=== PATIENT | female | born 1970 | race Caucasian/White ===

== ENCOUNTER 2017-11-06 06:11 | Day surgery (SDC) | payer SELFPAY ==
[2017-10-30 15:01] VITALS: BMI 25.7
[2017-11-06] MEDS ORDERED: ONDANSETRON 4 MG/2 ML VIAL IVPUSH PRN (06:50)
[2017-11-06] MEDS ORDERED: ePHEDrine SULFATE 50 MG/1 ML AMPULE ONE (06:58)
[2017-11-06] MEDS ORDERED: ROCURONIUM BROMIDE 50 MG/5 ML VIAL ONE (06:59)
[2017-11-06] MEDS ORDERED: PROPOFOL 20 ML ONE ×4 (06:59→07:58)
[2017-11-06] MEDS ORDERED: SUCCINYLCHOLINE CHLORIDE 200 MG/10 ML VIAL ONE (06:59)
[2017-11-06] MEDS ORDERED: MIDAZOLAM HCL 2 MG/2 ML SINGLE DOSE VIAL ONE ×2 (06:59→07:49)
[2017-11-06] MEDS ORDERED: LACTATED RINGERS SOLUTION 1,000 ML IV SCH (07:00)
[2017-11-06] MEDS ORDERED: BACITRACIN 3.5 GM OPTHALMIC OINT TUBE ONE (07:11)
[2017-11-06] MEDS ORDERED: BSS (NA/CA/MG/K) BALANCED SALT SOLUTION OPHTH SOLN 15 ML BOTTLE ONE (07:12)
[2017-11-06] MEDS ORDERED: LIDOCAINE 1%/EPI 1:100000 (20 ML MULTI DOSE VIAL) ONE (07:12)
[2017-11-06] MEDS ORDERED: POVIDONE-IODINE 5% OPHTHALMIC PREP 30 ML SOLUTION ONE (07:12)
--- NOTE | 2017-11-06 09:07 | OP ---
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
[2017-11-06 10:14] VITALS: TEMP 98
[2017-11-06 11:23] VITALS: BP 121/82; PULSE 84
== END 2017-11-06 11:40 | disposition home or self-care (01) ==
LOC: FASU 06:11
PROVIDERS: ATTEND Plastic Surgery
PROC: 080N0ZZ Alteration of Right Upper Eyelid, Open Approach (ICD-10-PCS; 2017-11-06)
PROC: 080P0ZZ Alteration of Left Upper Eyelid, Open Approach (ICD-10-PCS; principal; 2017-11-06 08:10)
DX: H02.32 Blepharochalasis right lower eyelid (principal); H02.34 Blepharochalasis left upper eyelid
CPT/HCPCS: 84703; 94760

== ENCOUNTER 2019-01-08 13:17 | Emergency (ER) | payer OTHER ==
[2019-01-08 13:26] VITALS: BP 157/90; PULSE 96; TEMP 98.5; BMI 25.7
--- NOTE | 2019-01-08 13:51 | PDOC ---
History of Present Illness - General Chief Complaint: Redness To Affected Area Stated Complaint: REDNESS DAVID BREASTS Time Seen by Provider: 01/08/19 13:20 History Source: Patient Exam Limitations: No Limitations - History of Present Illness Initial Comments: 01/08/19 13:42 HPI 48 YOF presenting with bilateral breast pain, redness, swelling, malodor and drainage x 5 weeks since her surgery with Dr Granados on [place], where she had bilateral breast reduction, liposuction and implants. since then, she has been maintaining cleaning and wound care, without improvement. since then, she has had constant pain in bilateral breasts, with purulence and open sores and odor. She had seen her surgeon x 2 over the past 2 weeks, and had attempts at drainage without blood/pus expelled. she continues to have pain worse in the left breast with drainage and axillary pain, with difficulty lifting her arm. Denies fever, chills, chest pain, SOB, palpitation, dizziness, weakness, abdominal pain, N, V, D, abdominal pain, bladder and bowel problems, leg swelling, No sick contacts or travel. No new changes in medications. no recent antibiotics Allergies: None Past Medical History: as documented in EMR/HPI Social history: Lives with family. No tobacco, ETOH or drug use. Surgical history: breast reduction and implants, blepharitis surgery Meds: as documented in EMR PMD: none Breast Surgeon: Dr Jaquan Rubalcava 01/08/19 14:07 01/08/19 14:07 01/08/19 14:38 01/08/19 17:23 Past History - Past Medical History Allergies/Adverse Reactions: Allergies Allergy/AdvReac Type Severity Reaction Status Date / Time No Known Allergies Allergy Verified 01/08/19 13:18 Home Medications: Ambulatory Orders Acidoph/L.bulg/Bif.b/S.thermop [Bacid Caplet] 1 each PO DAILY #14 tablet Cephalexin Monohydrate [Keflex -] 500 mg PO Q6H 14 Days #56 capsule 01/08/19 Sulfamethoxazole/Trimethoprim [Bactrim Ds Tablet] 1 each PO BID #28 tablet 01/08 Anemia: No Asthma: No Cancer: No Cardiac Disorders: No CVA: No COPD: No CHF: No Dementia: No Diabetes: No GI Disorders: No Disorders: No HTN: Yes Hypercholesterolemia: No Liver Disease: No Seizures: No Thyroid Disease: No - Surgical History Appendectomy: Yes - Suicide/Smoking/Psychosocial Hx Smoking History: Former smoker Have you smoked in the past 12 months: No If you are a former smoker, when did you quit?: 20 y ago Information on smoking cessation initiated: No Hx Alcohol Use: Yes (3 PER DAY) Drug/Substance Use Hx: No Substance Use Type: None Hx Substance Use Treatment: No Review of Systems - Review of Systems Able to Perform ROS?: Yes Comments:: 01/08/19 14:08 Review of systems Constitutional: no fevers or chills. HEENT: no headache or dizziness. No congestion. No visual/hearing disturbances. CVS: no cp or syncope. Resp: no sob. No cough. Gastrointestinal: no abdominal pain, nausea or vomiting. Genitourinary: no urinary sx, hematuria. MUSCULOSKELETAL: No joint pain and swelling. No neck or back pain. SKIN: +breast redness, swelling, sores, discharge, purulence and pain. Hematologic: no easy bruising/bleeding. NEUROLOGIC: No headache, dizziness, LOC or altered mental status. No weakness, numbness or tingling. Psych: no anxiety or depression Allergic/Immunologic: no allergies All other systems reviewed and negative, or as documented in HPI. *Physical Exam - Vital Signs Last Vital Signs Temp Pulse Resp BP Pulse Ox 98.5 F 96 H 20 157/90 100 01/08/19 13:18 01/08/19 13:18 01/08/19 13:18 01/08/19 13:18 01/08/19 13:18 - Physical Exam Comments: 01/08/19 14:08 Physical exam: General: Well appearing, awake and alert, NAD. HEENT: NCAT, PERRL, EOMI, clear conjunctiva, anicteric, moist mucus membranes, clear oropharynx, no oral lesions.. Neck: neck supple, FROM Breast: bilateral breast erythema, firmness and tenderness with post surgical appearance, 4 to 8 o'clock regions. bilateral under breast and anteriorly around areola with open ulcerations and granulation tissue and green-yellow discharge. Resp: CTAB, normal and even respirations, no respiratory distress CVS: RRR, no murmurs, 2+ peripheral pulses throughout, no peripheral edema Abdomen: soft, NTND, no peritoneal signs. Back: nontender, normal inspection and ROM MSK: no edema, DUMONT x4, ROM intact. No clubbing or cyanosis. normal bulk and tone. Neuro: alert, no focal neuro deficits. Psych: calm and cooperative Skin: warm and well perfused, cap refill <2 sec, normal color ED Treatment Course - LABORATORY CBC & Chemistry Diagram: 01/08/19 14:31 01/08/19 14:31 - RADIOLOGY Radiology Studies Ordered: Category Date Time Status BREAST US BILATERAL LIMITED [US] Stat Ultrasound 01/08/19 13:39 Ordered Medical Decision Making - Medical Decision Making 01/08/19 14:08 hpi as documented VS reviewed, wnl Vital Signs Temp Pulse Resp BP Pulse Ox 98.5 F 96 H 20 157/90 100 01/08/19 13:18 01/08/19 13:18 01/08/19 13:18 01/08/19 13:18 01/08/19 13:18 DDX breast abscess, cellulitis, infection, ulcerations, granulation tissue, fistula labs and lytes indicated, blood and wound cultures x2 sono breast tissue to check for fluid collection/abscess - results significant for bilateral post surg changes, with left > right, notable for abscess/fluid collection at 3:00 position on left breast areas appear infected, with recent surgery, check blood cultures, infectious workup, IV abx. call to Dr Rubalcava 01/08/19 14:38 - d/w Dr Rubalcava via telephone, attempted to provide results and plan, but disagreed despite findings of sono with abscess/fluid collection and provider decision to treat as breast infection, post surgically, analgesia and IV abx. requests minimal intervention including drainage, as he wishes to evaluate the patient personally as outpatient. 01/08/19 16:00 - shared decision making with patient and family member regarding care and impression/plan. offered admission for IV abx for complicated breast infection/abscess/cellulitis, observation and pain control, medical management. however, pt has capacity to make decisions, understanding indications, benefits of treatment and options and prefers discharge and plan for outpatient management, antibiotics and close plastics surgery followup as scheduled in 4 days. - pt given IV ancef 2g and dalvance 1.5g for staph/strep/MRSA coverage. - blood and wound cultures x2 obtained, followup on results in 24-48 hours. - will give oral abx as alternative as trial of therapy, as she has not been on antibiotics as of yet; will rx keflex QID and Bactrim BID x 14 days, take with probiotic as pt has GI issues with abx. - no indication for I&D, as affected areas are draining - pt is well appearing, nontoxic, with normal labs. pain is controlled, did not require analgesia here; does not appear septic and comfortable with plan outlined. - results provided, pt to c/w warm and cool compresses, breast support, elevation, analgesia with tylenol/nsaids as needed, abx, rest and phys activity as tolerated Pt to be discharged in stable condition. Patient and family at bedside made aware of clinical impression, treatment recommendations and disposition plan, return precautions discussed (including but not limited to new or persistent/ worsening symptoms, pain, fevers, or signs of infection, chest pain, respiratory distress, inability to tolerate oral intake, dehydration, syncope, or neurologic changes). Follow up with plastic surgeon Dr Rubalcava as schedule and as recommended, follow up information provided, take medications as instructed for duration of time. continue with supportive care, avoid triggers and precipitants. All questions answered to patient's satisfaction and expressed understanding and comfort with this. At the time of discharge, the patient is alert, clinically improved, tolerating po and verbalizes understanding of instructions, satisfied with the care received and felt comfortable with the plan. Patient does not suffer from an acute life- threatening medical condition at this time and is safe for outpatient follow- up. 01/08/19 17:14 01/08/19 17:17 *DC/Admit/Observation/Transfer Diagnosis at time of Disposition: Abscess of breast, left, Cellulitis of female breast - Discharge Dispostion Disposition: HOME Condition at time of disposition: Improved Decision to Admit order: No - Prescriptions Prescriptions: Acidoph/L.bulg/Bif.b/S.thermop [Bacid Caplet] 1 each PO DAILY #14 tablet Cephalexin Monohydrate [Keflex -] 500 mg PO Q6H 14 Days #56 capsule Sulfamethoxazole/Trimethoprim [Bactrim Ds Tablet] 1 each PO BID #28 tablet - Referrals Referrals: [facility] [Provider Group] [facility] [Provider [facility]] Wellington Ruiz MD [Staff Physician] - - Patient Instructions Printed Discharge Instructions: DI for Cellulitis -- Adult, DI for Mastitis, DI for Skin Abscess Additional Instructions: 1) Please follow-up with your plastic surgeon Dr Rubalcava as scheduled for . Please call your doctor with any urgent issues, as he is expecting your visit on scheduled date. primary care referrals also given. 2) You were given a copy of the tests performed today. Please bring the results with you and review them with your primary care doctor. Your laboratory / imaging results remarkable for left sided breast abscess on the affected side and post surgical changes. 3) If you have any worsening of symptoms or any other concerns please return to the ED immediately. Return if worsening symptoms including fevers, chills, worsening redness/discharge, malodor, purulence or pain, headache, vomiting, visual or hearing disturbances, abdominal pain, chest pain, shortness of breath , syncope, dehydration, inability to take things by mouth/vomiting, altered mental status, or worsening concerning symptoms. 4) Please continue taking your home medications as directed. your medications on discharge include Oral antibiotics - Keflex Four times a day and Bactrim twice a day to cover for common organisms responsible for the infection, for a total of 14 days . side effects may include upset stomach, abdominal pain, vomiting, or diarrhea. do not drink alcohol with your medications. you also received IV Dalvance and IV ancef as part of your treatment here Please take IBUPROFEN (aka MOTRIN, ADVIL, ALEVE) 400 mg and/or ACETAMINOPHEN ( aka Tylenol) 650-975 mg every 6 hours, as needed, for pain. Please do not take these medications if you have a bleeding disorder, stomach or GI ulcer problems or liver disease. continue with cool or warm compresses, wound cleaning daily and monitor for progressive infectious symptoms. follow up on wound cultures in the next 48-72 hours, if you have not heard back you can call back Mark [facility]illas - Post Discharge Activity Forms/Work/School Notes: Back to Work
[2019-01-08 14:57] LABS: BASO % 0.8 % (0-2.0); EOS % 0.5 % (0-4.5); HEMATOCRIT 39.1 % (32.4-45.2); LYMPH % 25.8 % (8-40); MCH 32.6 pg (25.7-33.7); MCHC 33.2 g/dl (32.0-36.0); MEAN CELL VOLUME 98.2 fl (80-96); MEAN PLT VOLUME 6.9 fl (7.5-11.1); MONO % 15.3 % (3.8-10.2); NEUT % 57.6 % (42.8-82.8); PLATELET COUNT 354 K/MM3 (134-434); RBC 3.98 M/mm3 (3.60-5.2); RDW 12.4 % (11.6-15.6); WHITE BLOOD COUNT 5.5 K/mm3 (4.0-10.8)
[2019-01-08 15:01] LABS: INR 1.28 (0.82-1.09); PROTHROMBIN TIME (PATIENT) 14.3 SEC (10.2-13.0)
[2019-01-08 15:06] LABS: ALBUMIN 3.7 g/dl (3.4-5.0); BILIRUBIN,TOTAL 0.6 mg/dl (0.2-1); CALCIUM 8.6 mg/dl (8.5-10); CREATININE 0.6 mg/dl (0.55-1.3)
[2019-01-08] MEDS ORDERED: DALBAVANCIN HCL 1,500 MG in DEXTROSE 5%-WATER - 500 ML IVPB ONE (15:36)
[2019-01-08] MEDS ORDERED: ceFAZolin 2 GRAM PREMIX BAG IVPB ONE (15:39)
[2019-01-08] MEDS ORDERED: ceFAZolin SODIUM 1 GM VIAL ONE (15:56)
[2019-01-08] MEDS ORDERED: DALBAVANCIN HCL 500 MG VIAL (RESTRICTED TO ID ONLY) IVPB ONE (15:56)
--- NOTE | 2019-01-09 15:20 | EKG ---
Test Reason : Blood Pressure : / mmHG Vent. Rate : 092 BPM Atrial Rate : 092 BPM P-R Int : 156 ms QRS Dur : 086 ms QT Int : 366 ms P-R-T Axes : 061 014 021 degrees QTc Int : 452 ms NORMAL SINUS RHYTHM POSSIBLE LEFT ATRIAL ENLARGEMENT LOW VOLTAGE QRS BORDERLINE ECG WHEN COMPARED WITH ECG OF 30-OCT-2017 11:49, NO SIGNIFICANT CHANGE WAS FOUND Confirmed by MD Kaden, Bacilio ([id number]) on 01/09/2019 3:20:42 PM Referred By: Confirmed By:Bacilio Alfonso MD
== END 2019-01-08 17:29 | disposition home or self-care (01) ==
LOC: FER 13:17
DX: N61.1 Abscess of the breast and nipple (principal); N61.0 Mastitis without abscess
CPT/HCPCS: 36415; 76642-TC-50; 80053; 85025; 85610; 86850; 86900; 86901; 87040; 87070; 87186; 87205; 93005; 99283-25; J0875